=== PATIENT | male | born 1965 | race Caucasian/White ===

== ENCOUNTER 2021-01-21 18:04 | Inpatient (IN) | payer MEDICAID ==
[~2021-01-21] VITALS: Ht 185.4 cm; Wt 89.6 kg
[2021-01-21] MEDS ORDERED: ASPIRIN 325MG TABLET PO ONE (18:45)
[2021-01-21 19:10] LABS: CLARITY URINE CLEAR (CLEAR); COLOR URINE YELLOW (YELLOW); KETONES URINE NEGATIVE (NEGATIVE); LEUKOCYTE ESTERASE URINE NEGATIVE (NEGATIVE); NITRITE URINE NEGATIVE (NEGATIVE); OCCULT BLOOD URINE NEGATIVE (NEGATIVE); PROTEIN URINE NEGATIVE (NEGATIVE); SPECIFIC GRAVITY URINE 1.007 (1.005-1.030); UROBILINOGEN URINE 0.2 E.U./dL (0.2-1.0)
[2021-01-21 19:21] LABS: *AMPHETAMINES SCREEN URINE NEGATIVE (NEGATIVE); *BARBITURATES SCREEN URINE NEGATIVE (NEGATIVE); *BENZODIAZEPINES SCREEN URINE NEGATIVE (NEGATIVE)
[2021-01-21 19:22] LABS: *COCAINE SCREEN URINE PRESUMTIVE POSITIVE (NEGATIVE); CANNABINOID URINE SCREEN NEGATIVE (NEGATIVE); METHADONE URINE SCREEN NEGATIVE (NEGATIVE); OPIATES URINE SCREEN NEGATIVE (NEGATIVE); PHENCYCLIDINE URINE SCREEN PRESUMTIVE POSITIVE (NEGATIVE)
[2021-01-21 19:44] LABS: BASOPHILS % 0.7 % (0.0-2.0); EOSINOPHILS % 1.7 % (0.0-5.0); HEMATOCRIT. 39.5 % (42.0-52.0); HEMOGLOBIN. 13.8 g/dL (14.0-18.0); LYMPHOCYTES % 23.1 % (20.0-50.0); MEAN CORPUSCULAR HEMOGLOBIN 32.8 pg (28.0-32.0); MEAN CORPUSCULAR VOLUME 93.8 fL (80.0-94.0); MONOCYTES % 7.5 % (2.0-8.0); RED BLOOD CELL COUNT 4.21 mill/uL (4.7-6.1)
[2021-01-21 19:48] LABS: CHLORIDE 110 mEq/L (98-107)
[2021-01-21 19:53] LABS: ETHANOL BLOOD 233 mg/dL
[2021-01-21 19:57] LABS: LDL CHOLESTEROL 105 mg/dL (5-100)
[2021-01-21 20:06] LABS: PROTHROMBIN TIME 11.2 sec (9.6-11.0)
[2021-01-21 20:45] LABS: MEAN PLATELET VOLUME 9.4 fl (7.4-10.4); PLATELET 144 x1000/uL (130-400)
[2021-01-21] MEDS ORDERED: ATORVASTATIN CALCIUM 40MG TABLET PO SCH (21:00)
[2021-01-21] MEDS ORDERED: ONDANSETRON HCL 4MG/2ML INJ IV PRN (22:45)
[2021-01-21] MEDS ORDERED: DIPHENHYDRAMINE 50MG/ML VIAL IV PRN (22:45)
[2021-01-21] MEDS ORDERED: MAGNESIUM/ALUMINUM HYDROXIDE/SIMETHICONE 30ML UDC PO PRN (22:45)
[2021-01-21] MEDS ORDERED: ZOLPIDEM TARTRATE 5MG TABLET PO PRN (22:45)
[2021-01-21] MEDS ORDERED: ACETAMINOPHEN 325MG TABLET PO PRN ×2 (22:45)
[2021-01-21] MEDS ORDERED: MVI, ADULT NO.1 10 ML, FOLIC ACID 1 MG, THIAMINE HCL 100 MG in SODIUM CHLORIDE 0.9% 1,0... IV NR (23:00)
[2021-01-22 01:19] VITALS: BP 116/63
[2021-01-22 08:00] VITALS: BP 132/90
[2021-01-22] MEDS ORDERED: PNEUMOCOCCAL 23-VAL P-SAC VAC 0.5 ML IM ONE (08:00)
[2021-01-22] MEDS: ENOXAPARIN 40MG/0.4ML SYR SUBCUT SCH (08:54)
[2021-01-22] MEDS: ASPIRIN 81MG EC TABLET PO SCH (09:06)
[2021-01-22 12:00] VITALS: BP 133/85
[2021-01-22 16:00] VITALS: BP 151/92
[2021-01-22 20:14] VITALS: BP 106/73
[2021-01-22] MEDS: ATORVASTATIN CALCIUM 20MG TABLET PO SCH (21:24)
[2021-01-23 00:20] VITALS: BP 110/69
[2021-01-23 04:00] VITALS: BP 133/84
[2021-01-23 08:00] VITALS: BP 154/90
[2021-01-23] MEDS: ENOXAPARIN 40MG/0.4ML SYR SUBCUT SCH (10:17)
[2021-01-23] MEDS: ASPIRIN 81MG EC TABLET PO SCH (10:26)
[2021-01-23 12:00] VITALS: BP 149/90
[2021-01-23 13:31] LABS: BASOPHILS % 0.5 % (0.0-2.0); EOSINOPHILS % 4.3 % (0.0-5.0); HEMATOCRIT. 41.8 % (42.0-52.0); HEMOGLOBIN. 14.4 g/dL (14.0-18.0); LYMPHOCYTES % 13.5 % (20.0-50.0); MEAN CORPUSCULAR HEMOGLOBIN 32.5 pg (28.0-32.0); MEAN CORPUSCULAR VOLUME 94.6 fL (80.0-94.0); MEAN PLATELET VOLUME 9.5 fl (7.4-10.4); MONOCYTES % 11.3 % (2.0-8.0); NEUTROPHILS % 70.4 % (40.0-76.0); PLATELET 176 x1000/uL (130-400); RED BLOOD CELL COUNT 4.42 mill/uL (4.7-6.1); RED CELL DISTRIBUTION WIDTH 13.9 % (11.6-14.6)
[2021-01-23 13:46] LABS: CHLORIDE 103 mEq/L (98-107)
[2021-01-23 16:00] VITALS: BP 136/87
[2021-01-23 20:00] VITALS: BP 151/98
[2021-01-23] MEDS: ATORVASTATIN CALCIUM 20MG TABLET PO SCH (20:28)
[2021-01-23] MEDS: MULTIVITAMINS,THER W-MINERALS TABLET PO SCH (22:47)
[2021-01-23] MEDS: FOLIC ACID 1MG TABLET PO SCH (22:47)
[2021-01-23] MEDS: THIAMINE HCL 100MG TABLET PO SCH (22:47)
[2021-01-24] VITALS: BP 138/88
[2021-01-24 04:00] VITALS: BP 132/82
[2021-01-24] MEDS ORDERED: CLOPIDOGREL 75MG TABLET PO SCH (09:00)
[2021-01-24] MEDS: ENOXAPARIN 40MG/0.4ML SYR SUBCUT SCH (09:00)
[2021-01-24] MEDS: ASPIRIN 81MG EC TABLET PO SCH (09:00)
[2021-01-24] MEDS: THIAMINE HCL 100MG TABLET PO SCH (09:00)
[2021-01-24] MEDS: FOLIC ACID 1MG TABLET PO SCH (09:00)
[2021-01-24] MEDS: MULTIVITAMINS,THER W-MINERALS TABLET PO SCH (09:00)
[2021-01-24 09:16] VITALS: BP 134/90
[2021-01-24 10:59] VITALS: BP 134/90
== END 2021-01-24 09:50 | disposition home or self-care (01) | DRG 45 ==
LOC: EDBD 18:04 → ER 18:04 → 8WST 19:50 → EDBEDREQSVC 20:15 → EDBEDREQ 20:15 → EDBEDREQTM 20:15 → ENRESERV 21:28
PROVIDERS: ADMIT Internal Medicine; ATTEND Internal Medicine
DX: I63.9 Cerebral infarction, unspecified (principal); G92 Toxic encephalopathy; G81.91 Hemiplegia, unspecified affecting right dominant side; E78.00 Pure hypercholesterolemia, unspecified; E78.5 Hyperlipidemia, unspecified; F14.10 Cocaine abuse, uncomplicated; F17.200 Nicotine dependence, unspecified, uncomplicated; G51.0 Bell's palsy; I10 Essential (primary) hypertension; F10.10 Alcohol abuse, uncomplicated; Y90.9 Presence of alcohol in blood, level not specified; F16.10 Hallucinogen abuse, uncomplicated; T14.8XXA Other injury of unspecified body region, initial encounter; W34.00XA Accidental discharge from unspecified firearms or gun, initial encounter; Z59.0 Homelessness; Y93.89 Activity, other specified; Y92.89 Other specified places as the place of occurrence of the external cause; Y99.8 Other external cause status
CPT/HCPCS: 36415; 70496; 70498; 71045; 80053; 80305; 80320; 81003; 82962; 83036; 83605; 83721; 83880; 84484; 85025; 90732; 92610; 93306; 93880; 97162; 99291; J1650; J3411; J3490; J7030; G0480